=== PATIENT | female | born 1975 | race Two or more races ===

== ENCOUNTER → 2017-11-27 | Outpatient (CLI) | payer OTHER | LOC: FIMAGING 07:21 | PROVIDERS: ATTEND Advanced Practice Midwife | DX: O09.522 Supervision of elderly multigravida, second trimester (principal); Z3A.20 20 weeks gestation of pregnancy ==

== ENCOUNTER → 2018-02-19 | Outpatient (CLI) | payer OTHER | LOC: FIMAGING 13:17 | PROVIDERS: ATTEND Advanced Practice Midwife | DX: O09.523 Supervision of elderly multigravida, third trimester (principal); Z3A.32 32 weeks gestation of pregnancy ==

== ENCOUNTER 2018-03-16 22:09 | Observation (INO) | payer OTHER | END 2018-03-16 23:15 | disposition home or self-care (01) | LOC: FLD 22:09 | PROVIDERS: ADMIT Advanced Practice Midwife; ATTEND Advanced Practice Midwife | DX: Z03.79 Encounter for other suspected maternal and fetal conditions ruled out (principal) | CPT/HCPCS: 59025; G0378 ==

== ENCOUNTER 2018-03-26 05:18 | Inpatient (IN) | payer OTHER ==
[2018-03-26] MEDS ORDERED: PENICILLIN G POTASSIUM 5,000,000 UNIT in D5W 150 ML IV ONE (06:11)
[2018-03-26] MEDS ORDERED: OXYTOCIN/RINGERS LACTATE 1,000 ML IV PRN (06:11)
[2018-03-26] MEDS ORDERED: MISOPROSTOL 200 MCG TAB PO PRN (06:11)
[2018-03-26] MEDS ORDERED: OLIVE OIL 118 ML BTL MISC PRN (06:11)
[2018-03-26] MEDS ORDERED: IBUPROFEN 600 MG TAB PO PRN (06:11)
[2018-03-26] MEDS ORDERED: AMMONIA AROMATIC 1 EACH AMP IH PRN (06:11)
[2018-03-26] MEDS ORDERED: TERBUTALINE SULFATE 1 MG/ML VIAL IV PRN (06:11)
[2018-03-26] MEDS ORDERED: LIDOCAINE 1% 300 MG/30 ML SDV SC PRN (06:11)
[2018-03-26] MEDS ORDERED: EPSOM SALT 454 GM TP PRN (06:11)
[2018-03-26] MEDS ORDERED: LR 1,000 ML IV PRN (06:11)
[2018-03-26 06:25] LABS: PLATELET COUNT 244 10^3/uL (150-400)
--- NOTE | 2018-03-26 06:25 | PDGENHP ---
History and Physical History and Physical: CARE: [facility] HPI: Patient is a 42 yo G 2 P 1 @ 37 weeks that presents to L&D with complaints of PROM at 0300. EDC: 04/16/18 which is based on LMP: 07/10/17 which is known and consistent with Ultrasound at 7 weeks. Her is complicated by: AMA >40yo Review of Systems: Constitutional: Denies any fever, chills, or fatigue HEENT: denies any visual changes, difficulty swallowing, hearing loss Cardiovascular: Denies any chest pain, palpitations, leg swelling Respiratory: denies any cough, wheezing, or shortness of breathe GI: Denies any nausea, vomiting, diarrhea, constipation : denies any dysuria, urgency, frequency, vaginal bleeding Musculoskeletal: denies any muscle or bone pain Skin: denies any rashes Neuro: denies any headache, seizures, lightheadedness, dizziness, or loss of consciousness Psychiatric: denies any depression, anxiety, or SI/HI thoughts HISTORY: Previous OB history: 2013 6#8oz Social history: , immunization for [facility] Family history: htn grandparents, diabetes MGM Past medical history: denies Past surgical history: breast augmentation Medications: PNV, DHA, Calcium Allergies (list reaction): NKDA LABS: Rh: A+ ABS: Neg Rubella: Immune HbsAg: NR HIV: NR VDRL: NR 1hr: 87 GC: Neg Chlamydia: Neg Pap: Normal 2017 GBS: + BMI: (prepreg) =24 PHYSICAL EXAM: Constitutional: WN, A&Ox3 HEENT: normocephalic atraumatic, supple Heart: RRR, no murmur Chest: CTA-B Skin: warm, dry, intact Abdomen: Soft, nontender, gravid SVE: not performed due to PROM, GBS + Extremities: no edema, negative homans sign Neuro: grossly normal Psych: normal affect assessment: FHT baseline 130, +accels, no decels, moderate variability Contractions: toco q 3-5 min, mild Assessment: 1) 42 yo G 2 P 1 with IUP@ 37 weeks 2) PROM, early labor 3) GBS +, prophylaxis initiated 4) Cat 1 FHR tracing Plan: 1) Admit to L&D 2) Anticipate
[2018-03-26] MEDS ORDERED: LIDOCAINE 1% 300 MG/30 ML SDV ONE (06:34)
[2018-03-26] MEDS ORDERED: OLIVE OIL 118 ML BTL ONE (06:35)
[2018-03-26] MEDS ORDERED: MISOPROSTOL 200 MCG TAB ONE (06:35)
[2018-03-26] MEDS ORDERED: TERBUTALINE SULFATE 1 MG/ML VIAL ONE (06:35)
[2018-03-26] MEDS ORDERED: AMMONIA AROMATIC 1 EACH AMP IH ONE (06:35)
[2018-03-26] MEDS ORDERED: OXYTOCIN 10 UNIT/ML VIAL ONE (06:35)
--- NOTE | 2018-03-26 07:49 | OBPROG ---
Labor Progress Note Assessment/Plan: Assessment: [id number] with IUP@ 37wks PROM @ 0300 (clear) GBS+ Plan: cont IV abx start cytotec 50mcg reassess 4hr/PRN pain management PRN anticipate 03/26/18 07:47 03/26/18 07:49 Subjective/Intrapartum Course: 03/26/18 07:48 Pt doing well, she is eating breakfast. She denies any pain or contractions. FOB at BS and supportive. Objective: 03/26/18 05:50 Patient ABO/Rh A POSITIVE 03/26/18 05:50 - SVE Membranes: SROM Amniotic Fluid Color: Clear Oxytocin Orders Assessment - Pre-Induction/Augmentation Assessment Gestational Age: 37 week(s) and 0 day(s) ICD10 Worksheet Patient Problems: Problems Problem Status Onset (spontaneous vaginal delivery) Acute
[2018-03-26] MEDS: MISOPROSTOL 50 MCG CAP PO SCH ×2 (09:05→13:44)
[2018-03-26] MEDS ORDERED: PENICILLIN G POTASSIUM 2,500,000 UNIT in D5W 150 ML IV SCH (10:12)
[2018-03-26] MEDS ORDERED: BUPIVACAINE 0.25% 10 ML SDV ONE (11:31)
[2018-03-26] MEDS ORDERED: fentaNYL 100 MCG/2 ML INJ ONE (11:31)
[2018-03-26] MEDS ORDERED: PHENYLEPHRINE HCL 100 MCG/ML SYR IVP PRN (11:50)
[2018-03-26] MEDS ORDERED: ONDANSETRON 4 MG/2 ML VIAL IVP PRN (11:50)
--- NOTE | 2018-03-26 11:50 | PREANESOB ---
Obstetric Pre-Anesthesia Info - General Info Proposed Procedure: danis : 2 Para: 1 JOAQUIM: 04/16/18 Gestational Age: 37 week(s) and 0 day(s) - Info Status: Full Term - Labor Status Cervical Dilation per last OB SVE: 3 Amniotic Fluid Color: Clear Labor Epidural: Yes Anesthesia Allergies/Adverse Reactions: Allergy/AdvReac Type Severity Reaction Status Date / Time No Known Allergies Allergy Verified 03/26/18 05:49 Home Medications: Medication Instructions Recorded Dha 1 cap PO DAILY 07/13/13 Iron 1 tab PO DAILY 07/13/13 1 tab PO DAILY 07/13/13 Visit Medications: Generic Name Dose Route Start Last Admin Trade Name Freq PRN Reason Stop Dose Admin Ammonia (Aromatic Spirit) 1 each 03/26/18 06:11 Ammonia Aromatic IH 04/05/18 06:10 ONCE PRN Fainting Lactated Ringer's 1,000 mls @ 0 mls/hr 03/26/18 06:11 03/26/18 06:52 Lr IV 03/27/18 06:10 1,000 mls PRN PRN Administration SEE PROTOCOL CONDITIONS Protocol Per Protocol Oxytocin/Lactated Ringer's 1,000 mls @ 0 mls/hr 03/26/18 06:11 Pitocin 20 Units/Lr (Premix) IV PRN PRN Post bleeding As Directed Penicillin G Potassium 2,500, 155 mls @ 155 mls/hr 03/26/18 10:12 03/26/18 10 :51 000 unit/ Dextrose IV 04/25/18 10:11 155 mls Q4H REDDY Administration Protocol Ibuprofen 600 mg 03/26/18 06:11 Motrin PO ONCE PRN post , pain Lidocaine HCl 300 mg 03/26/18 06:11 Lidocaine Hcl 1% SC 09/22/18 06:10 ONCE PRN episiotomy Magnesium Sulfate 454 gm 03/26/18 06:11 Epsom Salt TP 09/22/18 06:10 Q1H PRN perineal discomfort Misoprostol 800 - 1,000 mcg 03/26/18 06:11 Cytotec PO 09/22/18 06:10 ONCE PRN Vaginal Atony/Bleeding Misoprostol 50 mcg 03/26/18 08:00 03/26/18 09:05 Cytotec PO 09/22/18 07:59 50 mcg Q4H REDDY Administration Lathrop Oil 118 ml 03/26/18 06:11 Sweet Oil MISC 09/22/18 06:10 ONCE PRN perineal massage Terbutaline Sulfate 0.25 mg 03/26/18 06:11 Brethine IV 09/22/18 06:10 ONCE PRN Tachysystole Discontinued Medications Generic Name Dose Route Start Last Admin Trade Name Freq PRN Reason Stop Dose Admin Ammonia (Aromatic Spirit) Confirm 03/26/18 06:35 Ammonia Aromatic Administered 03/26/18 06:36 Dose 1 each IH .STK-MED ONE Bupivacaine HCl Confirm 03/26/18 11:31 Sensorcaine 0.25% Sdv Administered 03/26/18 11:32 Dose 10 ml .ROUTE .STK-MED ONE Fentanyl Confirm 03/26/18 11:31 Sublimaze Administered 03/26/18 11:32 Dose 100 mcg .ROUTE .STK-MED ONE Penicillin G Potassium 5,000, 160 mls @ 160 mls/hr 03/26/18 06:11 03/26/18 06 :50 000 unit/ Dextrose IV 03/26/18 07:10 160 mls ONCE ONE Administration Protocol Lidocaine HCl Confirm 03/26/18 06:34 Lidocaine Hcl 1% Administered 03/26/18 06:35 Dose 300 mg .ROUTE .STK-MED ONE Misoprostol Confirm 03/26/18 06:35 Cytotec Administered 03/26/18 06:36 Dose 1,000 mcg .ROUTE .STK-MED ONE Lathrop Oil Confirm 03/26/18 06:35 Sweet Oil Administered 03/26/18 06:36 Dose 118 ml .ROUTE .STK-MED ONE Oxytocin Confirm 03/26/18 06:35 Pitocin Administered 03/26/18 06:36 Dose 40 unit .ROUTE .STK-MED ONE Terbutaline Sulfate Confirm 03/26/18 06:35 Brethine Administered 03/26/18 06:36 Dose 1 mg .ROUTE .STK-MED ONE - Vital Signs Height/Weight (Nursing): Height 5 ft 2 in Weight 73.482 kg Labs: 03/26/18 05:50 Patient ABO/Rh A POSITIVE 03/26/18 05:50
[2018-03-26] MEDS ORDERED: fentaNYL 2MCG/ML/BUP 0.1% RTU 100 ML BAG EP ONE (11:56)
[2018-03-26] MEDS ORDERED: LR 500 ML IV SCH (12:00)
[2018-03-26] MEDS ORDERED: fentaNYL 2MCG/ML/BUP 0.1% RTU 100 ML EP SCH (12:00)
[2018-03-26] MEDS ORDERED: PHENYLEPHRINE HCL 100 MCG/ML SYR ONE (13:05)
[2018-03-26] MEDS ORDERED: SIMETHICONE 80 MG TAB CHEW PO PRN (14:05)
[2018-03-26] MEDS ORDERED: HYDROCORTISONE 0.5% CREAM TP PRN (14:05)
--- NOTE | 2018-03-26 14:05 | OBDEL ---
Info Type: Vaginal Presentation at Delivery: Vertex L&D Analgesia/Anesthesia Type: Epidural GBS+: Yes Intrapartum Medications: Generic Name Dose Route Start Last Admin Trade Name Freq PRN Reason Stop Dose Admin Lactated Ringer's 1,000 mls @ 0 mls/hr 03/26/18 06:11 03/26/18 06:52 Lr IV 03/27/18 06:10 1,000 mls PRN PRN Administration SEE PROTOCOL CONDITIONS Protocol Per Protocol Discontinued Medications Generic Name Dose Route Start Last Admin Trade Name Freq PRN Reason Stop Dose Admin Penicillin G Potassium 5,000, 160 mls @ 160 mls/hr 03/26/18 06:11 03/26/18 06 :50 000 unit/ Dextrose IV 03/26/18 07:10 160 mls ONCE ONE Administration Protocol Penicillin G Potassium 2,500, 155 mls @ 155 mls/hr 03/26/18 10:12 03/26/18 10 :51 000 unit/ Dextrose IV 04/25/18 10:11 155 mls Q4H REDDY Administration Protocol Ibuprofen 600 mg 03/26/18 06:11 03/26/18 13:47 Motrin PO 600 mg ONCE PRN Administration post , pain Misoprostol 50 mcg 03/26/18 08:00 03/26/18 13:44 Cytotec PO 09/22/18 07:59 Not Given Q4H REDDY penicillin - Hospital Course Intrapartum: 03/26/18 07:48 Pt doing well, she is eating breakfast. She denies any pain or contractions. FOB at BS and supportive. Indications for Delivery: SROM Vaginal Delivery - Delivery Provider Delivery Physician/CNM: Ashanti Hernández - Labor and Delivery Onset of Contractions Date: 03/26/18 Onset of Contractions Time: 10:50 Rupture of Membranes Date: 03/26/18 Rupture of Membranes Time: 03:00 Rupture of Membranes Type: Spontaneous Amniotic Fluid Color: Clear Dilation Complete Date: 03/26/18 Dilation Complete Time: 13:08 Placenta Delivery Date: 03/26/18 Placenta Delivery Time: 13:32 Total Hours of Labor: 2 Vaginal Sponge Count Correct: Yes Vaginal Needle Count Correct: Yes Vaginal Sweep Performed: Yes EBL: 100 Delivery Events: Other (Specify) (compound right arm) - Medications Labor Augmentation/Induction Methods Used: Misoprostol [place] Data JOAQUIM: 04/16/18 Gestational Age: 37 week(s) and 0 day(s) [place] Delivery Date: 03/26/18 Delivery Time: 13:25 Sex of : Male Score (1 Min): 8 Score (5 Min): 9 ICD10 Worksheet Patient Problems: Problems Problem Status Onset GBS (group B Streptococcus carrier), +RV culture, currently Acute (spontaneous vaginal delivery) Acute - ICD10 Problem Qualifiers (1) GBS (group B Streptococcus carrier), +RV culture, currently (2) (spontaneous vaginal delivery)
--- NOTE | 2018-03-26 15:23 | POSTANESTH ---
Post Anesthetic Evaluation Cardiovascular Status: Normal, Stable Respiratory Status: Normal, Stable Level of Consciousness/Mental Status: Can Participate in Eval Pain Control: Adequate, Prn Tx Ordered Nausea/Vomiting Control: Adequate, Prn Tx Ordered Complications Possibly Related to Anesthesia: None Noted
[2018-03-26] MEDS: IBUPROFEN 600 MG TAB PO PRN (20:02)
[2018-03-26] MEDS: ACETAMINOPHEN 325 MG TAB PO PRN (20:03)
[2018-03-27] MEDS: ACETAMINOPHEN 325 MG TAB PO PRN ×4 (01:59→20:47)
[2018-03-27] MEDS: IBUPROFEN 600 MG TAB PO PRN ×4 (01:59→20:47)
[2018-03-27] MEDS: DOCUSATE SODIUM 100 MG CAP PO PRN ×2 (08:26→20:47)
--- NOTE | 2018-03-27 10:00 | OBPP ---
Progress Note Assessment/Plan: Assessment: Plan: 03/27/18 09:58 A: Stable PPD #1 Establishing P: Continue pain medication scheduled Reviewed importance of feeding every 2 hours, especially with a 37 week baby and SGA. Discharge home tomorrow. Subjective/ Course: 03/27/18 09:57 Doing very well. Happy with . Denies pain other than cramping when . Well controlled with ibuprofen and tylenol. Baby is very well. Plans on discharge tomorrow. Objective: 03/26/18 05:50 Patient ABO/Rh A POSITIVE 03/26/18 05:50 Temp Pulse Resp BP Pulse Ox 36.4 C 66 16 99/58 L 96 03/26/18 20:00 03/26/18 20:00 03/26/18 20:00 03/26/18 20:00 03/26/18 20:00 Nipples intact bilaterally; breasts soft Uterine Position/Fundal Height: Umbilicus -1 Uterine Tone: Firm
[2018-03-28] MEDS: IBUPROFEN 600 MG TAB PO PRN ×2 (05:38→11:54)
[2018-03-28] MEDS: ACETAMINOPHEN 325 MG TAB PO PRN ×2 (05:38→11:53)
[2018-03-28 09:28] VITALS: BP 114/71
[2018-03-28] MEDS: DOCUSATE SODIUM 100 MG CAP PO PRN (11:54)
--- NOTE | 2018-03-28 11:54 | OBGCSDC ---
General Delivery Information - General Info : 2 Para: 2 Abortions: 0 Type: Vaginal L&D Analgesia/Anesthesia Type: Epidural Admission Date: 03/26/18 Labs: Patient ABO/Rh A POSITIVE 03/26/18 05:50 Hct 38.5 % (38.0-47.0) 03/26/18 05:50 - Hospital Course Intrapartum: 03/26/18 07:48 Pt doing well, she is eating breakfast. She denies any pain or contractions. FOB at BS and supportive. : 03/27/18 09:57 Doing very well. Happy with . Denies pain other than cramping when . Well controlled with ibuprofen and tylenol. Baby is very well. Plans on discharge tomorrow. 03/28/18 11:52 S) Pt doing well, reports min pain and bleeding. she is ambulating and voiding without difficulty. She is . She desires discharge home today. O) VSS, afebrile constitutional: WNWF, A&Ox3 HEENT: normocephalic, atraumatic, supple Heart: RRR, No murmur Chest: CTA-B Abdomen: Soft, nontender Uterus: Firm at U-2 Lochia: Minimal rubra Perineum: Intact, healing well Extremities: Trace edema, and negative Berlin's sign Neuro: Grossly normal A) 42 year-old P2 S/P PPD#2 P) Discharge home today Continue Pelvic rest x6wks Discussed danger signs (infection, preeclampsia, depression, heavy bleeding, etc) RTO in 2/4/6 weeks Vaginal - Delivery Provider Delivery Physician/CNM: Ashanti Hernández - Diagnosis Rupture of Membranes Type: Spontaneous Amniotic Fluid Color: Clear Delivery Events: Other (Specify) (compound right arm) - Delivery EBL: 100 [place] Data JOAQUIM: 04/16/18 Gestational Age: 37 week(s) and 2 day(s) Christianson Delivery Date: 03/26/18 Delivery Time: 13:25 Sex of Infant: Male Weight (gm): 2632 g Score (1 Min): 8 Score (5 Min): 9 Discharge Information - Discharge Information Prescriptions: Ibuprofen [Motrin (*)] 600 mg PO Q6HRS PRN #30 tab PRN Reason: Pain, Mild Able To Take Po Docusate Sodium [Colace 100 MG (*)] 100 mg PO BID PRN #30 cap PRN Reason: Constipation Condition: Good Instruction/Follow Up: Two Weeks, Four Weeks, Six Weeks
== END 2018-03-28 14:15 | disposition home or self-care (01) | DRG 807 ==
LOC: FLD 05:18 → FOB 17:02
PROVIDERS: ADMIT Advanced Practice Midwife; ATTEND Advanced Practice Midwife
PROC: 10E0XZZ Delivery of Products of Conception, External Approach (ICD-10-PCS; principal; 2018-03-26)
DX: O42.02 Full-term premature rupture of membranes, onset of labor within 24 hours of rupture (principal); Z37.0 Single live birth; Z3A.37 37 weeks gestation of pregnancy; O99.824 Streptococcus B carrier state complicating childbirth
CPT/HCPCS: J2370; J2540; J2590; J3010; J3105

== ENCOUNTER 2018-07-30 17:03 | Emergency (ER) | payer OTHER ==
[2018-07-30] MEDS ORDERED: ACETAMINOPHEN 500 MG TAB PO ONE (17:17)
--- NOTE | 2018-07-30 17:19 | EDPHY ---
General Time Seen by Provider: 07/30/18 17:16 Narrative: CLINICAL IMPRESSION: Left 3rd toe dislocation ASSESSMENT/PLAN: Patient is a 43-year-old female with no significant medical history presents to the emergency department with acute left middle toe pain and deformity after getting it caught on a computer cord just prior to arrival. Physical exam reveals generalized tenderness of the left middle toe with mild edema and overlying ecchymosis on the dorsal aspect, mild dorsal angulation. X-ray revealed dislocated 3rd toe PIP. The toe was relocated without difficulty, repeat x-ray without evidence of persistent dislocation. There is no evidence of toe fracture, foot fracture, compartment syndrome or neurovascular compromise. The patient was given Tylenol as she is breast-feeding, will continue his at home. She was placed in ava-tape and a supportive shoe. Podiatry referral provided. ED PROCEDURES: Procedure: Dislocation reduction. The left 3rd toe was reduced in the usual fashion without complications. Post reduction the patient's neurovascular exam is normal. Post reduction x-ray demonstrates reduction of the joint to the anatomic position. The procedure was performed by myself. ED COURSE: X-ray consistent with Dislocated 3rd toe PIP. 181: Repeat x-ray reviewed by myself and Dr. Jara, no findings to suggest persistent dislocation. CHIEF COMPLAINT: Left middle toe pain HPI: Patient is a 43-year-old female with no significant medical history who presents to the emergency department with acute left middle toe pain and deformity after getting it caught on a computer cord just prior to arrival. Patient reports she was walking in her room, got her foot caught in a computer cord and specifically got her left middle finger toe caught. She immediately experienced pain and feels that it is deformed. She did not fall to the ground , she did not hit her head. She denies any numbness or tingling of the digit. Denies any foot pain. She denies any other injury or complaint. ROS: Otherwise negative, please see HPI. PHYSICAL EXAM: General Appearance: Very uncomfortable appearing however not toxic-appearing. Respiratory: There are no retractions, lungs are clear to auscultation. Skin: Warm, dry, no rashes. No open wounds. Neuro: Alert and oriented x3, Cranial nerves 2-12 grossly intact. No focal deficit. Psych: Crying. Normal mood, normal affect. No agitation. Upper Extremities: Bilateral upper extremities are unremarkable- Intact distal pulses, Full range of motion intact, no tenderness, no ecchymosis or edema. Lower Extremities: Left foot with swelling and ecchymosis overlying the MTP of the 3rd digit, mild dorsal angulation and generalized tenderness to palpation in the toe. Two point discrimination is intact. There is no midfoot tenderness, no pain in the 1st webspace, 1st webspace sensation is intact. No navicular or base of the 5th metatarsal tenderness. Ankle is nontender with full range of motion. 2+ dorsalis pedis and posterior tibialis. Right lower extremity is unremarkable- Intact distal pulses, No edema, No tenderness, No cyanosis, full range of motion intact, No calf tenderness bilaterally. MEDICAL DECISION MAKING: Patient was seen independently. Secondary supervising physician at time of evaluation was Dr. Jara, he did not evaluate this patient. Diagnosis: Left middle toe dislocation. Summary: See Assessment and Plan for summary of ED visit Clinical lab tests: Not applicable. Independent visualization of images, tracing, or specimens: Yes. Decision to obtain medical records or history from someone other than the patient: No Review / Summarize previous medical records: Yes Discussed patient with another provider: Yes, Dr. Jara Patient Progress: Stable, discharge. - Diagnostics Imaging Results: Imaging Impressions Foot X-Ray 07/30/18 17:16 Impression: Dislocated third toe PIP joint. Toe X-Ray 07/30/18 17:56 Impression: Postreduction films demonstrate that the third digit is now in anatomic alignment. No definite fracture. - History Smoking Status: Never smoked - Objective Vital Signs: Initial Vital Signs Temperature (C) 36.8 C 07/30/18 17:09 Heart Rate 83 07/30/18 17:09 Respiratory Rate 16 07/30/18 17:09 Blood Pressure 106/66 07/30/18 17:09 O2 Sat (%) 97 07/30/18 17:09 O2 Delivery Mode Room Air Allergies/Adverse Reactions: No Known Allergies Allergy (Verified 07/30/18 17:13) Home Medications: Medication Instructions Recorded NK [No Known Home Meds] 07/30/18 Medications Given: Discontinued Medications Acetaminophen (Tylenol) 500 mg PO EDNOW ONE Stop: 07/30/18 17:18 Last Admin: 07/30/18 17:24 Dose: 500 mg Departure - Departure Disposition: Home, Routine, Self-Care Clinical Impression: Dislocation of toe of left foot Qualifiers: Encounter type: initial encounter Qualified Code(s): S93.105A - Unspecified dislocation of left toe(s), initial encounter Condition: Good Instructions: Finger Dislocation (ED) Additional Instructions: DISCHARGE INSTRUCTIONS FROM YOUR PROVIDER Thank you for visiting our emergency department today. Please keep in mind that discharge from the emergency department does not mean that there is nothing wrong - it simply means that we have not identified an emergency condition that requires further evaluation or treatment in the hospital. You should always plan to follow up with primary care for re-evaluation of your condition in the next 2-3 days. If you have been referred to a specialist, please call as soon as possible (today or tomorrow) to schedule your follow up appointment at the appropriate time, you have been provided a podiatry referral, please call to schedule follow-up appointment. Your found to have a dislocation of your left middle toe. This was relocated and on repeat examination no other acute findings. For pain control: You may take Tylenol, I recommend 500-1000 mg every 6-8 hours as needed. Take with food and a full glass of water. Stop taking if this is upsetting you stomach. Do not exceed 4000 mg in a 24 hr period. Continue to ice and elevate your foot. You may ava-tape your toes together as we did in the emergency department, where a supportive comfortable shoe. Return to the emergency department for significantly worsening or uncontrolled pain, numbness or tingling for any other concerning symptom. People present with illnesses and injuries in different ways, and it is always possible that we have missed something. Again, thank you for choosing our emergency department. We hope that you feel better. Referrals: Keiko Saunders DO [Primary Care Provider] - As per Instructions Mirza Horn DPM [Doctor of Podiatric Medicine] - 2-3 days, call for appt.
[2018-07-30 18:36] VITALS: BP 114/73
== END 2018-07-30 18:35 | disposition home or self-care (01) ==
PROC: 0SS Lower Joints, Reposition (ICD-10-PCS; principal; 2018-07-30)
DX: S93.105A Unspecified dislocation of left toe(s), initial encounter (principal); W01.0XXA Fall on same level from slipping, tripping and stumbling without subsequent striking against object, initial encounter; Y99.0 Civilian activity done for income or pay